=== PATIENT | male | born 1960 | race Caucasian/White ===

== ENCOUNTER 2018-02-12 12:33 | Outpatient (CLI) ==
--- NOTE | 2018-02-12 15:44 | MRI ---
EXAM: MRI lumbar spine without IV contrast. DATE: 12 February 2018. HISTORY: Lumbar spondylosis with radiculopathy. Leg and hip pain. TECHNIQUE: Sagittal and axial T1W and T2W sequences of the lumbar spine along with sagittal IR and c oronal T2W sequences were obtained using 1.2 Li magnet. No IV contrast. COMPARISON: LS spine series 31 May 2009. FINDINGS: There are five [id number] lumbar vertebra. Minor/mild rightward curvature of the lum bar spine is observed. No acute lumbar fracture, subluxation, osseous malignancy, or pars interartic ularis defect is identified. Lumbar vertebra are normal in height. Bone marrow signal is overall no rmal. Disc desiccation and mild disc space narrowing are present at L4-5. Prominent anterior osteop hytes, Modic type 2 marked degenerative endplate changes, disc desiccation, and marked disc space roya rowing are detected at L5-S1. No acute sacral fracture or stress reaction is evident. Broad areas o f T2W/T1W bright signal within the sacral ala and iliac bones are consistent with fatty infiltration. Conus medullaris terminates at T12-L1. Visible spinal cord is normal. No retroperitoneal lymphadenopathy, paraspinal mass, or aortic aneurysm is detected. Paraspinal musc ulature is symmetric bilaterally. Visible portions of the liver, spleen, and adrenal glands reveal n o abnormality. Gallbladder and pancreas are grossly normal. No bowel obstruction or malignancy is a pparent. Segmental analysis: T11-12: Normal. T12-L1: Normal. L1-2: Tiny posterior disc bulge does not cause central stenosis or foraminal stenosis. L2-3: Minimal posterior to foraminal disc bulge causes slight bilateral inferior foraminal encroachm ent. No central canal stenosis. L3-4: Minor concentric disc bulge causes slight narrowing at the opening to each foramen. No centra l canal stenosis. L4-5: Moderate concentric disc bulge, minor posterior spondylotic ridge at the L4 inferior endplate, mild facet arthropathy, and mild ligamentum flavum hypertrophy cause triangulation of the canal and marked bilateral foraminal stenoses. Right L4 nerve root contacts disc bulge at the foramen. Left L 4 nerve root appears mildly compressed in the foramen. Disc bulge also contacts each L5 nerve root a s the nerve exits the thecal sac. L5-S1: Broad posterior spondylotic ridge at L5 (extending from foramen to foramen), moderate concent david disc bulge, and mild facet arthropathy cause moderate /marked right and marked left foraminal suad noses. Each L5 nerve root contacts the disc bulge /osteophyte near the foramen. The disc bulge appro aches each S1 nerve root as the nerves exit the thecal sac, but does not definitively displace the ne rves. No central canal stenosis. IMPRESSIONS: 1. L-spine mild spondylosis, minor rightward curvature, mild facet arthropathy, and multilevel DDD. 2. Multilevel lumbar foraminal stenoses. Both L4 and both L5 nerve roots contact disc bulges/osteop hytes near the foramen, and could be sources for pain/radiculopathy. 3. L4-5 and L5-S1 disc bulges appear to contact the L5 and S1 nerve roots respectively, these might be sources for pain/radiculopathy. 4. Mild central canal stenosis at L4-5.
== END 2018-02-12 12:34 | disposition home or self-care (01) ==
LOC: RAD 12:33
PROVIDERS: ATTEND Emergency Medicine
DX: M47.26 Other spondylosis with radiculopathy, lumbar region (principal)